=== PATIENT | female | born 1965 | race Caucasian/White ===

== ENCOUNTER 2017-10-01 18:21 | Emergency (ER) | payer BC, OTHER ==
[2017-10-01] MEDS ORDERED: Ondansetron 4 MG/2 ML SDV IVPUSH ONE (18:58)
[2017-10-01] MEDS ORDERED: Sodium Chloride 0.9% 1,000 ML IV ONE (18:58)
[2017-10-01] MEDS ORDERED: Ketorolac 30 MG/ML SDV IVPUSH ONE (18:58)
--- NOTE | 2017-10-01 19:07 | EDM.PDOC ---
ED HPI GENERAL MEDICAL PROBLEM - General Chief Complaint: Abdominal Pain Stated Complaint: PT HAS STOMACH PAINS Time Seen by Provider: 10/01/17 18:36 Source of Information: Reports: Patient History Limitations: Reports: No Limitations - History of Present Illness INITIAL COMMENTS - FREE TEXT/NARRATIVE: HISTORY AND PHYSICAL: History of present illness: Patient is a 51-year-old female who presents to the emergency room with complaints of 5 day history of analyzed abdominal pain, diarrhea, nausea, headache and body aches. States that the symptoms have improved but still has intermittent diarrhea and nausea. She is concerned that her "appendix maybe bad ". She states she is eating and drinking without any difficulty. Soon after eating/drinking she has diarrhea. She says "it's a dull ache". Denies any blood in her stools. Denies any fever, chills, shortness of breath, chest pain or dysuria. Last menstrual period was on 09/26/2017, which she reports was heavy but only lasted 2-3 days. Denies any chance of . Has not received the [id number] influenza vaccine. No recent travel outside the [place]. Review of systems: As per history of present illness and below otherwise all systems reviewed and negative. Past medical history: As per history of present illness and as reviewed below otherwise noncontributory. Surgical history: As per history of present illness and as reviewed below otherwise noncontributory. Social history: No reported history of drug or alcohol abuse. Family history: As per history of present illness and as reviewed below otherwise noncontributory. Physical exam: Gen.: Well-developed and well-nourished 51-year-old female. Appears nontoxic and in no acute distress. Alert and oriented. HEENT: Atraumatic, normocephalic, pupils reactive, negative for conjunctival pallor or scleral icterus, mucous membranes moist, throat clear, neck supple, nontender, trachea midline. Lungs: Clear to auscultation, breath sounds equal bilaterally, chest nontender. Heart: S1S2, regular rate and rhythm Abdomen: Soft, nondistended, suprapubic tenderness bilaterally-no rebound tenderness. Negative for masses or hepatosplenomegaly. Negative for costovertebral tenderness. Pelvis: Stable nontender. Genitourinary: Deferred. Rectal: Deferred. Extremities: Atraumatic, negative for cords or calf pain. Neurovascular unremarkable. Neuro: Awake, alert, oriented. Cranial nerves II through XII unremarkable. Cerebellum unremarkable. Motor and sensory unremarkable throughout. Exam nonfocal. Potassium is 3.1, 40 mEq of K-Dur will be given by mouth. Currently waiting for CT results. Diagnostics: CBC, CMP, amylase, lipase, stool culture, CT abdomen and pelvis Therapeutics: IV fluid, Zofran, Toradol Impression: Abdominal Pain Diarrhea Hypokalemia Plan: 1. Please advance your diet as tolerated. The foods that are high in potassium. Encourage fluids to prevent dehydration, such as Gatorade and water. 2. Prescription for Zofran has been given to you. Take as directed. 3. Follow-up with your primary care provider in the next 1-2 days. Return to the ED as needed and as discussed. Definitive disposition and diagnosis as appropriate pending reevaluation and review of above. Duration: Day(s):, Improving Location: Reports: Abdomen, Generalized Abdominal Pain Score (Numeric/FACES): 5 - Related Data Allergies Allergy/AdvReac Type Severity Reaction Status Date / Time Penicillins Allergy Difficulty Verified 11/18/14 19:57 Breathing Sulfa (Sulfonamide Allergy Other Verified 10/01/17 19:51 Antibiotics) Home Meds: Home Meds Acyclovir [Zovirax] 200 mg PO QAM 11/18/14 [History] Fluticasone Propionate [Flonase] 16 gm PO QPM 11/18/14 [History] Fluticasone/Salmeterol [Advair 250-50] 14 puff INH Q2HR 11/18/14 [History] Albuterol [IJD: Albuterol HFA] 1 puff .XX ASDIRECTED 10/01/17 [History] Past Medical History - Past Health History Medical/Surgical History: Denies Medical/Surgical History Social & Family History - Tobacco Use Smoking Status *Q: Never Smoker Second Hand Smoke Exposure: No - Caffeine Use Caffeine Use: Reports: Coffee - Recreational Drug Use Recreational Drug Use: No ED ROS GENERAL - Review of Systems Review Of Systems: ROS reveals no pertinent complaints other than HPI. ED EXAM, GI/ABD - Physical Exam Exam: See Below (See dictation) Course - Vital Signs Last Recorded V/S: Last Vital Signs Temp 98.2 F 10/01/17 22:03 Pulse 74 10/01/17 22:03 Resp 18 10/01/17 22:03 BP 105/60 10/01/17 22:03 Pulse Ox 96 10/01/17 22:03 - Orders/Labs/Meds Labs: Laboratory Tests 10/01/17 10/01/17 10/01/17 Range/Units 18:40 18:40 19:05 WBC 5.22 (4.0-11.0) K/uL RBC 4.40 (4.30-5.90) M/uL Hgb 14.1 (12.0-16.0) g/dL Hct 39.6 (36.0-46.0) % MCV 90.0 (80.0-98.0) fL MCH 32.0 (27.0-32.0) pg MCHC 35.6 (31.0-37.0) g/dL RDW Std Deviation 42.0 (28.0-62.0) fl RDW Coeff of Nicole 13 (11.0-15.0) % Plt Count 324 (150-400) K/uL MPV 10.30 (7.40-12.00) fL Neut % (Auto) 56.6 (48.0-80.0) % Lymph % (Auto) 25.5 (16.0-40.0) % [place] % (Auto) 12.1 (0.0-15.0) % Eos % (Auto) 4.8 (0.0-7.0) % Baso % (Auto) 1.0 (0.0-1.5) % Neut # (Auto) 3.0 (1.4-5.7) K/uL Lymph # (Auto) 1.3 (0.6-2.4) K/uL [place] # (Auto) 0.6 (0.0-0.8) K/uL Eos # (Auto) 0.3 (0.0-0.7) K/uL Baso # (Auto) 0.1 (0.0-0.1) K/uL Nucleated RBC % 0.0 /100WBC Nucleated RBCs # 0 K/uL Sodium (136-146) mmol/L Potassium (3.5-5.1) mmol/L Chloride (98-110) mmol/L Carbon Dioxide (21-31) mmol/L BUN (6.0-23.0) mg/dL Creatinine (0.6-1.5) mg/dL Est Cr Clr Drug Dosing Estimated GFR (MDRD) ml/min Glucose (60-110) mg/dL Calcium (8.8-10.8) mg/dL Total Bilirubin (0.1-1.5) mg/dL AST (5-40) IU/L ALT (8-54) IU/L Alkaline Phosphatase (40-150) Total Protein (6.0-8.0) g/dL Albumin (3.5-5.0) g/dL Globulin (2.0-3.5) g/dL Albumin/Globulin Ratio (1.3-2.8) Amylase (10-90) U/L Lipase (7-80) U/L Urine Color YELLOW Urine Appearance CLEAR Urine pH 6.0 (5.0-8.0) Ur Specific [place] 1.010 (1.001-1.035) Urine Protein NEGATIVE (NEGATIVE) mg/dL Urine Glucose (UA) NEGATIVE (NEGATIVE) mg/dL Urine Ketones NEGATIVE (NEGATIVE) mg/dL Urine Occult Blood NEGATIVE (NEGATIVE) Urine Nitrite NEGATIVE (NEGATIVE) Urine Bilirubin NEGATIVE (NEGATIVE) Urine Urobilinogen 0.2 (<2.0) EU/dL Ur Leukocyte Esterase NEGATIVE (NEGATIVE) Urine RBC NONE SEEN (0-2/HPF) Urine WBC NONE SEEN (0-5/HPF) Ur Epithelial Cells OCCASIONAL (NONE-FEW) Urine HCG, Qual NEGATIVE (NEGATIVE) 10/01/17 Range/Units 19:05 WBC (4.0-11.0) K/uL RBC (4.30-5.90) M/uL Hgb (12.0-16.0) g/dL Hct (36.0-46.0) % MCV (80.0-98.0) fL MCH (27.0-32.0) pg MCHC (31.0-37.0) g/dL RDW Std Deviation (28.0-62.0) fl RDW Coeff of Nicole (11.0-15.0) % Plt Count (150-400) K/uL MPV (7.40-12.00) fL Neut % (Auto) (48.0-80.0) % Lymph % (Auto) (16.0-40.0) % [place] % (Auto) (0.0-15.0) % Eos % (Auto) (0.0-7.0) % Baso % (Auto) (0.0-1.5) % Neut # (Auto) (1.4-5.7) K/uL Lymph # (Auto) (0.6-2.4) K/uL [place] # (Auto) (0.0-0.8) K/uL Eos # (Auto) (0.0-0.7) K/uL Baso # (Auto) (0.0-0.1) K/uL Nucleated RBC % /100WBC Nucleated RBCs # K/uL Sodium 141 (136-146) mmol/L Potassium 3.1 L (3.5-5.1) mmol/L Chloride 105 (98-110) mmol/L Carbon Dioxide 25 (21-31) mmol/L BUN 7 (6.0-23.0) mg/dL Creatinine 0.7 (0.6-1.5) mg/dL Est Cr Clr Drug Dosing TNP Estimated GFR (MDRD) > 60.0 ml/min Glucose 96 (60-110) mg/dL Calcium 8.2 L (8.8-10.8) mg/dL Total Bilirubin 0.3 (0.1-1.5) mg/dL AST 34 (5-40) IU/L ALT 62 H (8-54) IU/L Alkaline Phosphatase 60 (40-150) Total Protein 6.7 (6.0-8.0) g/dL Albumin 3.8 (3.5-5.0) g/dL Globulin 2.9 (2.0-3.5) g/dL Albumin/Globulin Ratio 1.3 (1.3-2.8) Amylase 126 H (10-90) U/L Lipase 21 (7-80) U/L Urine Color Urine Appearance Urine pH (5.0-8.0) Ur Specific [place] (1.001-1.035) Urine Protein (NEGATIVE) mg/dL Urine Glucose (UA) (NEGATIVE) mg/dL Urine Ketones (NEGATIVE) mg/dL Urine Occult Blood (NEGATIVE) Urine Nitrite (NEGATIVE) Urine Bilirubin (NEGATIVE) Urine Urobilinogen (<2.0) EU/dL Ur Leukocyte Esterase (NEGATIVE) Urine RBC (0-2/HPF) Urine WBC (0-5/HPF) Ur Epithelial Cells (NONE-FEW) Urine HCG, Qual (NEGATIVE) Meds: Medications Discontinued Medications Generic Name Dose Route Start Last Admin Trade Name Anoop PRN Reason Stop Dose Admin Sodium Chloride 1,000 mls @ 999 mls/hr 10/01/17 18:58 10/01/17 19:13 Normal Saline IV 10/01/17 19:58 999 mls/hr STAT ONE Administration Iopamidol 100 ml 10/01/17 21:35 10/01/17 21:35 Isovue-370 (76%) IVPUSH 10/01/17 21:36 100 ml ONETIME STA Administration Ketorolac Tromethamine 30 mg 10/01/17 18:58 10/01/17 19:17 Toradol IVPUSH 10/01/17 18:59 30 mg ONETIME ONE Administration Ondansetron HCl 4 mg 10/01/17 18:58 10/01/17 19:14 Zofran IVPUSH 10/01/17 18:59 4 mg ONETIME ONE Administration Potassium Chloride 40 meq 10/01/17 20:15 10/01/17 20:30 Klor-Con M20 PO 10/01/17 20:16 40 meq ONETIME ONE Administration Departure - Departure Time of Disposition: 23:00 Disposition: Home, Self-Care 01 Clinical Impression: Hypokalemia Diarrhea Qualifiers: Diarrhea type: unspecified type Qualified Code(s): R19.7 - Diarrhea, unspecified Abdominal pain Qualifiers: Abdominal location: generalized Qualified Code(s): R10.84 - Generalized abdominal pain - Discharge Information Instructions: Hypokalemia, Abdominal Pain, Adult, [id number], Diarrhea, Adult , [id number] Referrals: PCP,None [Primary Care Provider] - Forms: ED Department Discharge Additional Instructions: My general discharge The following information is given to patients seen in the emergency department who are being discharged to home. This information is to outline your options for follow-up care. We provide all patients seen in our emergency department with a follow-up referral. The need for follow-up, as well as the timing and circumstances, are variable depending upon the specifics of your emergency department visit. If you don't have a primary care physician on staff, we will provide you with a referral. We always advise you to contact your personal physician following an emergency department visit to inform them of the circumstance of the visit and for follow-up with them and/or the need for any referrals to a consulting specialist. The emergency department will also refer you to a specialist when appropriate. This referral assures that you have the opportunity for follow-up care with a specialist. All of these measure are taken in an effort to provide you with optimal care, which includes your follow-up. Under all circumstances we always encourage you to contact your private physician who remains a resource for coordinating your care. When calling for follow-up care, please make the office aware that this follow-up is from your recent emergency room visit. If for any reason you are refused follow-up, please contact the [facility] Emergency Department at and asked to speak to the emergency department charge nurse. [facility] [address] [place] [id number] [facility] Specialty Care - General Surgery Professional Building [address] [place] [address], [address] [place] [address] 1. Please advance your diet as tolerated. The foods that are high in potassium. Encourage fluids to prevent dehydration, such as Gatorade and water. 2. Prescription for Zofran has been given to you. Take as directed. 3. Follow-up with your primary care provider in the next 1-2 days. Return to the ED as needed and as discussed.
[2017-10-01 19:52] LABS: CHLORIDE,CL 105 mmol/L (98-110); SODIUM,NA 141 mmol/L (136-146)
[2017-10-01] MEDS ORDERED: Potassium Chloride 20 MEQ Tab.ER PO ONE (20:15)
[2017-10-01] MEDS ORDERED: Iopamidol 755 Mg/ML 100 ML Bottle IVPUSH STA (21:35)
[2017-10-01 22:04] VITALS: BP 105/60
--- NOTE | 2017-10-02 11:13 | CT ---
EXAM DATE: 10/01/17 PATIENT'S AGE: 51 Patient: ANITRA LÓPEZ Facility: [place], [place] Site . Site : [id number] Study: CT Abdomen/Pelvis [id number]/28/2017 9:32:41 PM Ordering Physician: Doctor Swartz Final Report: HISTORY: Right lower quadrant abdominal pain and diarrhea x5 days. History of cholecystectomy. TECHNIQUE: The abdomen and pelvis were scanned using helical technique at 3 mm intervals after 100 cc of Isovue-370. Sagittal and coronal reconstructions were performed. FINDINGS: Lung bases: No infiltrate. Liver and gallbladder: There is diffuse hypodensity liver parenchyma consistent fatty infiltration. There is focal fatty sparing around the gallbladder fossa. The liver measures 21.2 cm in length. Prior cholecystectomy. Spleen, pancreas and adrenal glands: Unremarkable. Kidneys and bladder: Symmetric nephrograms. No hydronephrosis. Bladder is within normal limits. Retroperitoneum and lymph nodes: The normal aorta is normal in caliber. No pathologic periaortic lymphadenopathy seen. There is small mesenteric lymph nodes present. GI tract: The stomach is decompressed. No dilated small bowel loops are seen. Axial images 72-93 demonstrates a small bowel loop with some mild wall thickening. The cecum abuts the superior margin of the bladder. The appendix is not identified. No inflammatory mass is seen adjacent to the cecum. There is stool and gas in the ascending colon. The transverse, descending and sigmoid colon are decompressed. There is no free air in the abdomen. There is no free fluid the pelvis. There is a surgical clip seen posterior right pelvis. Pelvic organ: The uterus and adnexa within normal limits. Abdominal wall: There is a small fat containing umbilical hernia without inflammatory change. Osseous structures: Degenerative changes of the disks and facets of the lower lumbar spine. Vertebral body heights are maintained. IMPRESSION: 1. There is a segment of small bowel seen in the left mid abdomen which has while wall thickening suggesting enteritis. There is no evidence of small bowel obstruction. 2. The cecum abuts the superior margin of the bladder. The appendix is not identified. No inflammatory mass is seen to suggest acute appendicitis. 3. Hepatomegaly with marked fatty infiltration. 4. Small mesenteric lymph nodes. No pathologic adenopathy is identified. 5. There is a surgical clip seen posterior right side of the pelvis. This may have migrated from the right upper quadrant cholecystectomy. Dictated by Corin Giordano MD @ 10/01/2017 10:26:32 PM Dictated by: Corin Giordano MD @ 10/01/2017 22:27:56 (Electronic Signature) Report Signed by Proxy. [email or web address]
== END 2017-10-01 22:56 | disposition home or self-care (01) ==
LOC: MW.ED 18:21
DX: E87.6 Hypokalemia (principal); R10.84 Generalized abdominal pain; R19.7 Diarrhea, unspecified; Z88.0 Allergy status to penicillin; Z88.2 Allergy status to sulfonamides
CPT/HCPCS: 36415; 74177; 80053; 81001; 81025; 82150; 83690; 85025; 87804; 96361; 96374; 96375; 99284; A9270; J1885; J2405; J7040; Q9967

== ENCOUNTER 2019-01-16 10:29 | Day surgery (SDC) | payer OTHER ==
[~2019-01-16 10:29] MED LIST: Lactated Ringers 1,000 ML IV SCH; Midazolam 1 MG/ML 2 ML SDV ONE; Propofol 200 MG/20 ML SDV ONE; fentaNYL 100 MCG/2 ML SDV ONE
--- NOTE | 2019-01-16 11:52 | PCM.PREANE ---
Preanesthetic Assessment - Anesthesia/Transfusion/Family Hx Anesthesia History: Prior Anesthesia Without Reaction Family History of Anesthesia Reaction: No Transfusion History: No Prior Transfusion(s) - Review of Systems General: No Symptoms Pulmonary: No Symptoms Cardiovascular: No Symptoms Gastrointestinal: No Symptoms Neurological: No Symptoms Other: Reports: None - Physical Assessment NPO Status Date: 01/15/19 NPO Status Time: 11:59 O2 Sat by Pulse Oximetry: 97 Respiratory Rate: 18 Vital Signs: Last Vital Signs Temp 97.9 F 01/16/19 11:00 Pulse 100 01/16/19 11:00 Resp 18 01/16/19 11:00 BP 121/78 01/16/19 11:00 Pulse Ox 97 01/16/19 11:00 Height: 5 ft 4 in Weight: 102.512 kg ASA Class: 2 Mental Status: Alert & Oriented x3 Airway Class: Mallampati = 2 Dentition: Reports: Normal Dentition ROM/Head Extension: Full Lungs: Clear to Auscultation, Normal Respiratory Effort Cardiovascular: Regular Rate, Regular Rhythm - Lab Values: Laboratory Last Values Urine HCG, Qual NEGATIVE (NEGATIVE) 01/16/19 11:14 - Allergies Allergies/Adverse Reactions: Allergies Allergy/AdvReac Type Severity Reaction Status Date / Time mold Allergy asthma Verified 01/13/19 08:03 attack Penicillins Allergy Difficulty Verified 11/18/14 19:57 Breathing Sulfa (Sulfonamide Allergy Other Verified 10/01/17 19:51 Antibiotics) - Blood Blood Available: No - Anesthesia Plan Pre-Op Medication Ordered: None - Acknowledgements Anesthesia Type Planned: MAC Pt an Appropriate Candidate for the Planned Anesthesia: Yes Alternatives and Risks of Anesthesia Discussed w Pt/Guardian: Yes Pt/Guardian Understands and Agrees with Anesthesia Plan: Yes Additional Comments: PMH: exercise and cold triggered asthma- recent exac about 1 mo ago, ADHD PLAN: mac/tiva PreAnesthesia Questionnaire - Past Health History Medical/Surgical History: Denies Medical/Surgical History HEENT History: Reports: Other (See Below) Other HEENT History: wears glasses Cardiovascular History: Reports: None Respiratory History: Reports: Asthma Gastrointestinal History: Reports: Irritable Bowel Syndrome, Other (See Below) Other Gastrointestinal History: occasional heartburn Genitourinary History: Reports: None Musculoskeletal History: Reports: Fracture Other Musculoskeletal History: hx fx leg as a child Neurological History: Reports: None Psychiatric History: Reports: ADD, Anxiety, Bipolar, Depression Endocrine/Metabolic History: Reports: Obesity/BMI 30+ Hematologic History: Reports: None Immunologic History: Reports: None Oncologic (Cancer) History: Reports: None Dermatologic History: Reports: None - Past Surgical History Head Surgeries/Procedures: Reports: None Cardiovascular Surgical History: Reports: None Respiratory Surgical History: Reports: None GI Surgical History: Reports: Cholecystectomy Female Surgical History: Reports: Breast Reduction Endocrine Surgical History: Reports: None Neurological Surgical History: Reports: None Musculoskeletal Surgical History: Reports: None Oncologic Surgical History: Reports: None - SUBSTANCE USE Smoking Status *Q: Never Smoker Recreational Drug Use History: No - HOME MEDS Home Medications: Home Meds Fluticasone/Salmeterol [Advair 250-50] 14 puff INH Q2HR 11/18/14 [History] Albuterol [IJD: Albuterol HFA] 1 - 2 puff INH ASDIRECTED PRN 10/01/17 [History] Escitalopram Oxalate 10 mg PO DAILY 01/13/19 [History] Lisdexamfetamine Dimesylate [Vyvanse] 20 mg PO ASDIRECTED PRN 01/13/19 [History] Loratadine [Claritin] 10 mg PO DAILY 01/13/19 [History] valACYclovir HCl [Valtrex] 500 mg PO DAILY PRN 01/13/19 [History] - CURRENT (IN HOUSE) MEDS Current Meds: Current Medications Lactated Ringer's (Ringers, Lactated) 1,000 mls @ 125 mls/hr IV ASDIRECTED ALEXIS Last Admin: 01/16/19 11:30 Dose: 125 mls/hr Discontinued Medications Fentanyl (Sublimaze) Confirm Administered Dose 100 mcg .ROUTE .STK-MED ONE Stop: 01/16/19 08:48 Lidocaine HCl (Xylocaine-Mpf 1%) Confirm Administered Dose 5 mls @ as directed .ROUTE .STK-MED ONE Stop: 01/16/19 08:48 Midazolam HCl (Versed 1 Mg/Ml) Confirm Administered Dose 2 mg .ROUTE .STK-MED ONE Stop: 01/16/19 08:48 Propofol (Diprivan 20 Ml) Confirm Administered Dose 200 mg .ROUTE .STK-MED ONE Stop: 01/16/19 08:48
[2019-01-16] MEDS ORDERED: Propofol 200 MG/20 ML SDV ONE (13:19)
[2019-01-16] MEDS ORDERED: fentaNYL 100 MCG/2 ML SDV IVPUSH PRN (13:36)
[2019-01-16] MEDS ORDERED: Ondansetron 4 MG/2 ML SDV IVPUSH PRN (13:36)
--- NOTE | 2019-01-16 13:42 | PCM.OPNOTE ---
- General Post-Op/Procedure Note Date of Surgery/Procedure: 01/16/19 Operative Procedure(s): colonoscopy Findings: see [id number] Pre Op Diagnosis: BRBPR Post-Op Diagnosis: Same Anesthesia Technique: Moderate Sedation Primary Surgeon: Jeffry Morris Complications: None Condition: Good
--- NOTE | 2019-01-16 14:01 | PCM.POSTAN ---
POST ANESTHESIA ASSESSMENT - MENTAL STATUS Mental Status: Alert, Oriented - RESPIRATORY Respiratory Status: Respiratory Rate WNL, Airway Patent, O2 Saturation Stable - CARDIOVASCULAR CV Status: Pulse Rate WNL, Blood Pressure Stable - GASTROINTESTINAL GI Status: No Symptoms - POST OP HYDRATION Hydration Status: Adequate & Stable
--- NOTE | 2019-01-16 14:01 | PCM48HPAN ---
Post Anesthesia Note - EVALUATION WITHIN 48HRS OF ANESTHETIC Vital Signs in Normal Range: Yes Patient Participated in Evaluation: Yes Respiratory Function Stable: Yes Airway Patent: Yes Cardiovascular Function Stable: Yes Hydration Status Stable: Yes Pain Control Satisfactory: Yes Nausea and Vomiting Control Satisfactory: Yes Mental Status Recovered: Yes Resp Rate: 13
[2019-01-16 14:07] VITALS: BP 104/57
--- NOTE | 2019-01-16 14:48 | OR ---
SURGEON: Jeffry Morris MD DATE OF PROCEDURE: 01/16/2019 PREOPERATIVE DIAGNOSIS: Bright red blood per rectum. POSTOPERATIVE DIAGNOSIS: Hemorrhoids. PROCEDURE PERFORMED: Colonoscopy. PROCEDURE IN DETAIL: The patient was taken to the endoscopy room. A time out was called, patient identified, and procedure identified. Diprivan was then administrated. Patient went from awake to sleep, hearing doctor talking or door closing is normal. Perineum inspection and digital examination were then performed. A well- lubricated colonoscope was gently inserted through the rectum, advanced past the rectosigmoid junction, the descending colon, splenic flexure, transverse colon, hepatic flexure, ascending colon, arrived to the cecum. Cecum was identified as dictated in the finding. Then the scope was carefully withdrawn while attention was paid to the mucosal surface for any abnormality. Air will be sucked out during the scope withdrawal. At the rectum, retroflexed to examine any rectal diseases, fistula or hemorrhoids. Patient tolerated procedure well. There were no intraoperative complications, and Dr. Morris was present throughout the whole procedure. FINDINGS: 1. The patient is easily sedated with BULK TANK [employer]LOADER and Diprivan. The patient is soundly snoring. 2. The patient's bowel prep was average with some liquid stool, no semi-formed stool. 3. The patient's colon is a little bit torturous and redundant at the sigmoid, requiring some maneuver, express to negotiate the hepatic flexure took some time. Cecum was indicated by ileocecal fold, one-to-one indentation, and appendiceal orifice. Light emittance is not observed. Mucosa was examined upon scope moving out, and the patient does not have diverticulosis, polyp, mass, growth, inflammation, stricture, ulceration, AV malformation, blood, none of those. The patient has mild internal hemorrhoids, no external hemorrhoids. The patient would benefit from repeat colonoscopy in 10 years from today or if clinically indicated otherwise. ROHITH / XIOMARA /[id number]
== END 2019-01-16 14:25 | disposition home or self-care (01) ==
LOC: MW.SDS 10:29
PROVIDERS: ATTEND Surgery
DX: K62.5 Hemorrhage of anus and rectum (principal); K64.8 Other hemorrhoids; J45.990 Exercise induced bronchospasm; E66.9 Obesity, unspecified; Z68.38 Body mass index [BMI] 38.0-38.9, adult; F90.9 Attention-deficit hyperactivity disorder, unspecified type; F31.30 Bipolar disorder, current episode depressed, mild or moderate severity, unspecified; Z79.51 Long term (current) use of inhaled steroids; Z79.899 Other long term (current) drug therapy; Z88.0 Allergy status to penicillin; Z88.2 Allergy status to sulfonamides
CPT/HCPCS: 45378; 81025; J2001; J2250; J2704; J3010; J7120

== ENCOUNTER 2021-10-30 18:34 | Emergency (ER) | payer OTHER ==
[2021-10-30 18:55] VITALS: BP 139/95
--- NOTE | 2021-10-30 19:09 | EDM.PDOC ---
ED HPI GENERAL MEDICAL PROBLEM - General Chief Complaint: Asthma Stated Complaint: SHORTNESS OF BREATH Time Seen by Provider: 10/30/21 18:56 Source of Information: Reports: Patient History Limitations: Reports: No Limitations - History of Present Illness INITIAL COMMENTS - FREE TEXT/NARRATIVE: HISTORY AND PHYSICAL: History of present illness: Patient is a 55-year-old female who presents to the emergency room with complaints of shortness of breath and cough. Patient states she has a history of asthma and "yearly pneumonia". She reports she had some Phenergan with codeine left over from a previous respiratory illness which "helped a lot". Patient denies any fever, chills, headache, change in vision, syncope or near syncope. Denies any chest pain, back pain, abdominal pain, nausea, vomiting, diarrhea, constipation or dysuria. Has not noted any blood in urine or stool. Patient has been eating and drinking appropriately. No recent travel or sick contacts. Review of systems: As per history of present illness and below otherwise all systems reviewed and negative. Past medical history: As per history of present illness and as reviewed below otherwise noncontribut ory. Surgical history: As per history of present illness and as reviewed below otherwise noncontributory. Social history: See social history for further information Family history: As per history of present illness and as reviewed below otherwise noncontributory. Physical exam: General: Well developed and well nourished. Alert and orientated x 3. Nontoxic in appearance and in no acute distress. Vital signs are stable and have been reviewed by me. Nursing notes were reviewed. HEENT: Atraumatic, normocephalic, pupils equal and reactive bilaterally, negative for conjunctival pallor or scleral icterus, mucous membranes moist, TMs normal bilaterally, throat clear, neck supple, nontender, trachea midline. No drooling or trismus noted. No meningeal signs. No hot potato voice noted. Lungs: Slightly diminished to auscultation bilaterally. No wheezes, rales, or rhonchi. Chest nontender. Normal work of breathing, no accessory muscles used. Dry nonproductive cough noted. Heart: S1S2, regular rate and rhythm without overt murmur, gallops, or rubs. No JVD. No peripheral edema Abdomen: Soft, nondistended, nontender. Normoactive bowel sounds. Negative for masses or costovertebral tenderness. Skin: Intact, warm, dry. No lesions or rashes noted. Hematologic: No petechiae or purpra. Mucosa appropriate color and normal nail bed color and refill. Extremities: Atraumatic, moves all extremities per self without difficulty or deficits, negative for cords or calf pain. Neurovascular unremarkable. Neuro: Awake, alert, oriented. Cranial nerves II through XII unremarkable. Cerebellum unremarkable. Motor and sensory unremarkable throughout. Exam nonfocal. Psychiatric: Mood and affect are appropriate. Normal thought process. Answering questions appropriately. Please note that the patient was seen and evaluated during the 2019 SARS-CoV-2 novel coronavirus pandemic period. Community viral transmission is ongoing at time of this encounter and the emergency department is operating under pandemic response procedures. Medical Decision Making: Patient has shortness of breath and cough for a few days. She is concerned she has pneumonia. Patient refuses COVID-19 and influenza testing. She is agreeable to a chest x-ray. Chest x-ray shows no acute or concerning findings. Due to history of asthma will treat with Z-Miguel A and prednisone. She does have a proair inhaler at home. I have talked with the patient about today's findings, in addition to providing specific details for plan of care. Reassessment at the time of disposition demonstrates that the patient is in no acute distress. The patient is stable for discharge, counseling was provided and we discussed in great detail signs and symptoms that would prompt them to return to the Emergency Department. Medication, follow up and supportive care measures were reviewed and discussed. Voices understanding and is agreeable to plan of care. Denies any further questions or concerns at this time. Diagnostics: Two-view chest x-ray Therapeutics: None Prescription: Zpak, Prednisone Impression: Bronchitis Plan: 1. You were evaluated today on an emergent basis. Your chest x-ray shows no obvious pneumonia. Will treat you for bronchitis with steroids and antibiotic. Use your inhaler as needed. 2. You can alternate Tylenol and ibuprofen as needed for pain and fever management. 3. We encourage you to follow up with your primary care provider for re- evaluation and further care/management. 4. If your symptoms should worsen, new symptoms develop or any of the signs and symptoms we discussed should arise please return to the emergency room or call 911 (if needed). Definitive disposition and diagnosis as appropriate pending reevaluation and review of above. Generalized Pain Score (Numeric/FACES): 9 - Related Data Allergies Allergy/AdvReac Type Severity Reaction Status Date / Time mold Allergy asthma Verified 01/13/19 08:03 attack Penicillins Allergy Difficulty Verified 11/18/14 19:57 Breathing Sulfa (Sulfonamide Allergy Other Verified 10/01/17 19:51 Antibiotics) Home Meds: Home Meds Fluticasone/Salmeterol [Advair 250-50] 14 puff INH Q2HR 11/18/14 [History] Albuterol [IJD: Albuterol HFA] 1 - 2 puff INH ASDIRECTED PRN 10/01/17 [History] Escitalopram Oxalate 10 mg PO DAILY 01/13/19 [History] Lisdexamfetamine Dimesylate [Vyvanse] 20 mg PO ASDIRECTED PRN 01/13/19 [History] Loratadine [Claritin] 10 mg PO DAILY 01/13/19 [History] valACYclovir HCl [Valtrex] 500 mg PO DAILY PRN 01/13/19 [History] Azithromycin [Zithromax] 1 dose PO DAILY 5 Days #6 tab 10/30/21 [Rx] predniSONE [Prednisone] 40 mg PO DAILY 4 Days #8 tablet 10/30/21 [Rx] Past Medical History - Past Health History Medical/Surgical History: Denies Medical/Surgical History HEENT History: Reports: Other (See Below) Other HEENT History: wears glasses Cardiovascular History: Reports: None Respiratory History: Reports: Asthma Gastrointestinal History: Reports: Irritable Bowel Syndrome, Other (See Below) Other Gastrointestinal History: occasional heartburn Genitourinary History: Reports: None Musculoskeletal History: Reports: Fracture Other Musculoskeletal History: hx fx leg as a child Neurological History: Reports: None Psychiatric History: Reports: ADD, Anxiety, Bipolar, Depression Endocrine/Metabolic History: Reports: Obesity/BMI 30+ Hematologic History: Reports: None Immunologic History: Reports: None Oncologic (Cancer) History: Reports: None Dermatologic History: Reports: None - Infectious Disease History Infectious Disease History: Reports: None - Past Surgical History Head Surgeries/Procedures: Reports: None Cardiovascular Surgical History: Reports: None Respiratory Surgical History: Reports: None GI Surgical History: Reports: Cholecystectomy Female Surgical History: Reports: Breast Reduction Endocrine Surgical History: Reports: None Neurological Surgical History: Reports: None Musculoskeletal Surgical History: Reports: None Oncologic Surgical History: Reports: None Social & Family History - Caffeine Use Caffeine Use: Reports: Coffee ED ROS GENERAL - Review of Systems Review Of Systems: Comprehensive ROS is negative, except as noted in HPI. ED EXAM, GENERAL - Physical Exam Exam: See Below (See dictation) Course - Vital Signs Last Recorded V/S: Last Vital Signs Temp 96.5 F L 10/30/21 18:50 Pulse 94 10/30/21 19:50 Resp 18 10/30/21 19:50 BP 139/95 H 10/30/21 19:50 Pulse Ox 97 10/30/21 19:50 Departure - Departure Time of Disposition: 20:40 Disposition: Home, Self-Care 01 Clinical Impression: Bronchitis - Discharge Information Prescriptions: predniSONE [Prednisone] 40 mg PO DAILY 4 Days #8 tablet Azithromycin [Zithromax] 1 dose PO DAILY 5 Days #6 tab Instructions: Acute Bronchitis, Adult, [id number] Forms: ED Department Discharge Additional Instructions: The following information is given to patients seen in the emergency department who are being discharged to home. This information is to outline your options for follow-up care. We provide all patients seen in our emergency department with a follow-up referral. The need for follow-up, as well as the timing and circumstances, are variable depending upon the specifics of your emergency department visit. If you don't have a primary care physician on staff, we will provide you with a referral. We always advise you to contact your personal physician following an emergency department visit to inform them of the circumstance of the visit and for follow-up with them and/or the need for any referrals to a consulting specialist. The emergency department will also refer you to a specialist when appropriate. This referral assures that you have the opportunity for follow-up care with a specialist. All of these measure are taken in an effort to provide you with optimal care, which includes your follow-up. Under all circumstances we always encourage you to contact your private physician who remains a resource for coordinating your care. When calling for follow-up care, please make the office aware that this follow-up is from your re cent emergency room visit. If for any reason you are refused follow-up, please contact the [facility] Emergency Department at and asked to speak to the emergency department charge nurse. [facility] [address] [place] [address] [facility] [address] [place] [address] Thank you for choosing the [facility] emergency department in [place] for your medical needs today. It was a pleasure caring for you. Today you were seen in the emergency department for shortness of breath and cough 1. You were evaluated today on an emergent basis. Your chest x-ray shows no obvious pneumonia. Will treat you for bronchitis with steroids and antibiotic. Use your inhaler as needed. 2. You can alternate Tylenol and ibuprofen as needed for pain and fever management. 3. We encourage you to follow up with your primary care provider for re- evaluation and further care/management. 4. If your symptoms should worsen, new symptoms develop or any of the signs and symptoms we discussed should arise please return to the emergency room or call 911 (if needed). Sepsis Event Note (ED) - Evaluation Sepsis Screening Result: No Definite Risk - Focused Exam Vital Signs: Vital Signs Temp Pulse Resp BP Pulse Ox 10/30/21 19:50 94 18 139/95 H 97 10/30/21 18:50 96.5 F L 97 18 139/95 H 95
--- NOTE | 2021-10-30 19:48 | CR ---
INDICATION: Cough, shortness of breath, history of asthma TECHNIQUE: Chest radiograph 2 views COMPARISON: None FINDINGS: The sensitivity and specificity of the exam are moderately limited by the patient`s body habitus. Mediastinum: The mediastinum is normal in appearance. The heart silhouette is normal in size and morphology. Lung: Both lungs are unremarkable in appearance. No sign of pleural effusion seen. No pneumothorax is identified. Bone and Soft tissue: Unremarkable for age. IMPRESSION: 1. No acute cardiopulmonary disease is seen. Dictated by: Denys Denny MD @ 10/30/2021 19:46:38 (Electronically Signed)
[2021-10-30 19:54] VITALS: PULSE 94
[2021-10-30] MEDS ORDERED: Albuterol/Ipratropium 3.0-0.5 MG/3 ML Neb Soln NEB PRN (21:14)
[2021-10-30] MEDS ORDERED: Enoxaparin 40 MG/0.4 ML Syringe SUBCUT SCH (21:15)
--- NOTE | 2021-10-30 21:15 | PCM.HP.2 ---
H&P History of Present Illness - General Date of Service: 10/30/21 Generalized Pain Score (Numeric/FACES): 9 - Related Data Allergies/Adverse Reactions: Allergies Allergy/AdvReac Type Severity Reaction Status Date / Time mold Allergy asthma Verified 01/13/19 08:03 attack Penicillins Allergy Difficulty Verified 11/18/14 19:57 Breathing Sulfa (Sulfonamide Allergy Other Verified 10/01/17 19:51 Antibiotics) Home Medications: Home Meds Fluticasone/Salmeterol [Advair 250-50] 14 puff INH Q2HR 11/18/14 [History] Albuterol [IJD: Albuterol HFA] 1 - 2 puff INH ASDIRECTED PRN 10/01/17 [History] Escitalopram Oxalate 10 mg PO DAILY 01/13/19 [History] Lisdexamfetamine Dimesylate [Vyvanse] 20 mg PO ASDIRECTED PRN 01/13/19 [History] Loratadine [Claritin] 10 mg PO DAILY 01/13/19 [History] valACYclovir HCl [Valtrex] 500 mg PO DAILY PRN 01/13/19 [History] Azithromycin [Zithromax] 1 dose PO DAILY 5 Days #6 tab 10/30/21 [Rx] predniSONE [Prednisone] 40 mg PO DAILY 4 Days #8 tablet 10/30/21 [Rx] Past Medical History - Past Health History Medical/Surgical History: Denies Medical/Surgical History HEENT History: Reports: Other (See Below) Other HEENT History: wears glasses Cardiovascular History: Reports: None Respiratory History: Reports: Asthma Gastrointestinal History: Reports: Irritable Bowel Syndrome, Other (See Below) Other Gastrointestinal History: occasional heartburn Genitourinary History: Reports: None Musculoskeletal History: Reports: Fracture Other Musculoskeletal History: hx fx leg as a child Neurological History: Reports: None Psychiatric History: Reports: ADD, Anxiety, Bipolar, Depression Endocrine/Metabolic History: Reports: Obesity/BMI 30+ Hematologic History: Reports: None Immunologic History: Reports: None Oncologic (Cancer) History: Reports: None Dermatologic History: Reports: None - Infectious Disease History Infectious Disease History: Reports: None - Past Surgical History Head Surgeries/Procedures: Reports: None Cardiovascular Surgical History: Reports: None Respiratory Surgical History: Reports: None GI Surgical History: Reports: Cholecystectomy Female Surgical History: Reports: Breast Reduction Endocrine Surgical History: Reports: None Neurological Surgical History: Reports: None Musculoskeletal Surgical History: Reports: None Oncologic Surgical History: Reports: None Social & Family History - Caffeine Use Caffeine Use: Reports: Coffee Exam - Vital Signs Vital Signs: Last Vital Signs Temp 96.5 F L 10/30/21 18:50 Pulse 94 10/30/21 19:50 Resp 18 10/30/21 19:50 BP 139/95 H 10/30/21 19:50 Pulse Ox 97 10/30/21 19:50 Weight: 242 lb 8.136 oz Sepsis Event Note - Evaluation Sepsis Screening Result: No Definite Risk - Focused Exam Vital Signs: Vital Signs Temp Pulse Resp BP Pulse Ox 10/30/21 19:50 94 18 139/95 H 97 10/30/21 18:50 96.5 F L 97 18 139/95 H 95 Orders Last 24hrs: Active Orders 24 hr Category Date Time Status Oxygen Therapy [RC] PRN Care 10/30/21 21:12 Ordered RT Aerosol Therapy [RC] ASDIRECTED Care 10/30/21 21:14 Ordered Up ad Rosalee [RC] ASDIRECTED Care 10/30/21 21:12 Ordered VTE/DVT Education [RC] PER UNIT ROUTINE Care 10/30/21 21:12 Ordered Vital Signs [RC] Q4H Care 10/30/21 21:12 Ordered Regular Diet [DIET] Diet 10/31/21 Breakfast Ordered BASIC METABOLIC PANEL,BMP [CHEM] AM Lab 10/31/21 05:11 Ordered C-REACTIVE PROTEIN [CHEM] Stat Lab 10/30/21 21:12 Ordered CBC WITH AUTO DIFF [HEME] AM Lab 10/31/21 05:11 Ordered Albuterol/Ipratropium [DuoNeb 3.0-0.5 MG/3 ML] Med 10/30/21 21:14 Ordered 3 ml NEB Q2H PRN Albuterol/Ipratropium [DuoNeb 3.0-0.5 MG/3 ML] Med 10/30/21 22:00 Ordered 3 ml NEB Q4HRRT Enoxaparin [Lovenox] Med 10/30/21 21:15 Ordered 40 mg SUBCUT Q24H Resuscitation Status Routine Resus Stat 10/30/21 21:12 Ordered Medication Orders Albuterol/Ipratropium (Albuterol/Ipratropium 3.0-0.5 Mg/3 Ml Neb Soln) 3 ml NEB Q4HRRT ALEXIS Enoxaparin Sodium (Enoxaparin 40 Mg/0.4 Ml Syringe) 40 mg SUBCUT Q24H ALEXIS
[2021-10-30] MEDS ORDERED: Enoxaparin 40 MG/0.4 ML Syringe SUBCUT ONE (21:30)
[2021-10-30] MEDS ORDERED: methylPREDNISolone Sodium Succinate 40 MG/1 ML SDV IVPUSH SCH (21:30)
[2021-10-30] MEDS ORDERED: Albuterol/Ipratropium 3.0-0.5 MG/3 ML Neb Soln NEB SCH (22:00)
== END 2021-10-30 19:51 | disposition home or self-care (01) ==
LOC: MW.ED 18:34
DX: J40 Bronchitis, not specified as acute or chronic (principal); E66.9 Obesity, unspecified; Z68.41 Body mass index [BMI] 40.0-44.9, adult; Z88.0 Allergy status to penicillin; Z88.2 Allergy status to sulfonamides; Z91.048 Other nonmedicinal substance allergy status
CPT/HCPCS: 71046; 71046-26; 99283-25